=== PATIENT | male | born 1965 | race Caucasian/White ===

== ENCOUNTER → 2019-01-08 | Day surgery (SDC) | payer MEDICAID, MEDICARE ==
--- NOTE | 2019-01-04 14:00 | HP ---
HISTORY AND PHYSICAL This gentleman came to the office referred by Dr. Borjas for placement of a Port-A- Cath. The patient has history of multiple sclerosis under care of Dr. Borjas. According to the patient and the family, they have very difficult IV access, so the patient need a Port-A-Cath for frequent IV infusion and patient will be scheduled for placement of the Port-A-Cath. MEDICAL HISTORY: No history of diabetes, hypertension. Patient has a history of vasospastic disease and patient is wheelchair bound. PHYSICAL EXAMINATION: NECK: Supple, trachea central. CHEST: Clear to auscultation. ABDOMEN: Soft, nontender. Femorals are palpable. The patient is wheelchair bound and he has spasticity of the upper and lower extremities. PLAN: Placement of a Port-A-Cath. The risks and complication discussed, bleeding, infection, thrombosis. MMODL / IJN: [id number] /
[~2019-01-08] MED LIST: LACTATED RINGERS 1,000 ML IV SCH; LIDOCAINE 1% (PF) 10 MG/ML (30 ML SDV) SQ ONE; MIDAZOLAM 2 MG/2 ML VIAL ONE; PROPOFOL 10 MG/ML 20 ML VIAL IV ONE; SODIUM CHLORIDE 0.9% 500 ML 500 ML IV ONE; SODIUM CHLORIDE 0.9% 500 ML 500 ML IV SCH; ceFAZolin IN SWFI 2 GM/20 ML SYRINGE IVP STA; fentaNYL (PF) 50 MCG/ML 2 ML AMP ONE
[2019-01-08 09:57] VITALS: RESP 18; TEMP 98
[2019-01-08 10:04] LABS: Basophils # (A) 0.1 k/uL (0-0.2); Basophils % (A) 1 %; Eosinophils # (A) 0.3 k/uL (0-0.7); Eosinophils % (A) 5 %; HCT 46.3 % (39.0-53.0); Lymphocytes # (A) 1.9 k/uL (1.0-4.8); Lymphocytes % (A) 31 %; MCH 30.5 pg (25.0-35.0); MCHC 32.4 g/dL (31.0-37.0); MCV 94.1 fL (80.0-100.0); Mean Platelet Volume 7.1; Monocytes # (A) 0.4 k/uL (0-1.0); Monocytes % (A) 7 %; Neutrophils # (A) 3.2 k/uL (1.3-7.7); Neutrophils % (A) 53 %; Platelet Count 193 k/uL (150-450); RBC 4.92 m/uL (4.30-5.90); RDW 12.5 % (11.5-15.5); WBC 6.1 k/uL (3.8-10.6)
[2019-01-08 10:15] LABS: Anion Gap 6 mmol/L; Blood Urea Nitrogen 11 mg/dL (9-20); Calcium 9.2 mg/dL (8.4-10.2); Carbon Dioxide 32 mmol/L (22-30); Chloride 104 mmol/L (98-107); Glucose 90 mg/dL (74-99); Sodium 142 mmol/L (137-145)
[2019-01-08 10:23] LABS: Potassium 5.2 mmol/L (3.5-5.1)
[2019-01-08 12:32] VITALS: BP 145/71; PULSE 71
--- NOTE | 2019-01-08 12:32 | IR ---
EXAMINATION TYPE: IR cvc insert central tunneled DATE OF EXAM: 01/08/2019 COMPARISON: NONE HISTORY: Fluoroscopy time. Fluoroscopy was provided to the referring clinician.
--- NOTE | 2019-01-08 13:00 | XR ---
EXAMINATION TYPE: XR chest 1V portable DATE OF EXAM: 01/08/2019 COMPARISON: NONE HISTORY: MediPort placement TECHNIQUE: Single frontal view of the chest is obtained. FINDINGS: There is a right-sided Mediport terminating in the distal superior vena cava. There is no focal air space opacity, pleural effusion, or pneumothorax seen. The cardiac silhouette size is with in normal limits. The osseous structures are intact. Osseous demineralization is noted. IMPRESSION: Right-sided Mediport terminating in the distal superior vena cava. No acute cardiopulmona ry process.
--- NOTE | 2019-01-08 13:06 | PCN ---
PROCEDURE NOTE PREOPERATIVE DIAGNOSIS: Multiple sclerosis with difficult IV access. PROCEDURE: Ultrasound-guided Port-A-Cath placed right internal jugular approach. This patient was brought to the candlemaking laborer under sedation. The right side of the neck and chest was prepped and draped in a sterile manner. Ultrasound-guided micropuncture introduced into the right jugular vein. Then micropuncture guidewire was passed and checked with the C-Arm. It was in good position. After that, we created a pocket, transfer incision was made on the anterior chest wall, using 1% lidocaine, deepened through skin, fat, and fascia. A pocket was created. Then Port-A-Cath was tunneled and was brought into the neck incision and Port-A-Cath was secured with using 2-0 Prolene to secure the Port-A-Cath, flushed with heparin saline. After that, we passed a regular guidewire and sheath was advanced on top of the guidewire. Through the sheath we introduced Port-A-Cath catheter, tip of the catheter in superior vena, atrial junction. Flushed with heparin saline and hemostasis was well controlled. Incision was closed with 4-0 Vicryl and skin closed. Subcuticular dressing applied. PLAN: Patient going home today. We will do the chest x-ray and patient will follow in my office in 1 week. MMODL / IJN: [id number] /
== END ==
LOC: CATHCVL 09:23
PROVIDERS: ATTEND Surgery Vascular Surgery
DX: G35 Multiple sclerosis (principal); I73.9 Peripheral vascular disease, unspecified; F48.2 Pseudobulbar affect; Z99.3 Dependence on wheelchair; Z79.899 Other long term (current) drug therapy
CPT/HCPCS: 36561; 76937; 77001; 80048; 85025; 71045; C1788; C1769 ×2; J2250; J2001; J3010; J2704; J0690; 36571

== ENCOUNTER 2019-05-16 15:36 | Inpatient (IN) | payer MEDICAID, MEDICARE ==
[2019-05-16] MEDS ORDERED: IPRATROPIUM-ALBUTEROL 3 ML NEB INHALATION STA (16:12)
--- NOTE | 2019-05-16 16:15 | ED ---
General Adult HPI - General Chief complaint: Shortness of Breath Stated complaint: Dyspnea Time Seen by Provider: 05/16/19 16:04 Source: patient, family, EMS, RN notes reviewed Mode of arrival: EMS Limitations: language barrier, physical limitation - History of Present Illness Initial comments: Patient is a pleasant 54-year-old male with advanced EMS. He presents with for difficulty breathing. Patient maybe had minimal symptoms of has day or 2 however symptoms significantly worsen today. Patient had coughing with thick white sputum even with suctioning. No fevers. Patient does feel short of breath. Oxygen level was low at home and patient had to restart oxygen. Patient has been off oxygen for a couple of weeks prior to this. Patient was in the hospital 2 or 3 months ago with pneumonia. Prior to that no history of any breathing problems. Patient has had some intermittent tachycardia and takes Cardizem for this. Only his heart rate is only around 100 however. Patient has limited verbal capability however is able to easily answer yes and no. provides majority of history. - Related Data Home Medications Medication Instructions Recorded Confirmed Dextromethorphan HBr/Quinidine 1 cap PO Q12H 01/04/19 05/16/19 [Nuedexta 20-10 mg Capsule] Modafinil [Provigil] 200 mg PO BID 01/04/19 05/16/19 Calcium Carbonate [Calcium] 600 mg PO DAILY 01/20/19 05/16/19 Cholecalciferol [Vitamin D3 (25 1,000 unit PO DAILY 01/20/19 05/16/19 Mcg = 1000 Iu)] Amoxic-Pot Clav 875-125Mg 1 tab PO BID 05/16/19 05/16/19 [Augmentin 875-125] Ascorbic Acid [Vitamin C] 5,000 mcg PO DAILY 05/16/19 05/16/19 Baclofen Pump (5.3mcg Per Hour) 1 pump IV Q24H 05/16/19 05/16/19 Loratadine [Claritin] 10 mg PO DAILY 05/16/19 05/16/19 diphenhydrAMINE HCL [Benadryl] 25 mg PO BID 05/16/19 05/16/19 guaiFENesin [Mucinex] 600 mg PO BID PRN 05/16/19 05/16/19 Previous Rx's Medication Instructions Recorded Diltiazem Oral [Cardizem*] 30 mg PO TID #30 tab 02/11/19 Pantoprazole Sodium [Protonix] 40 mg PO AC-BRKFST #30 tablet. 02/11/19 Allergies Allergy/AdvReac Type Severity Reaction Status Date / Time No Known Allergies Allergy Verified 05/16/19 15:55 Review of Systems ROS Statement: Those systems with pertinent positive or pertinent negative responses have been documented in the HPI. ROS Other: All systems not noted in ROS Statement are negative. Constitutional: Denies: fever Eyes: Denies: eye pain ENT: Denies: ear pain Respiratory: Reports: cough, dyspnea Cardiovascular: Denies: chest pain Endocrine: Reports: fatigue Gastrointestinal: Denies: abdominal pain Genitourinary: Denies: urgency Musculoskeletal: Denies: back pain Skin: Denies: rash Neurological: Denies: headache Past Medical History Additional Past Medical History / Comment(s): MS-dx 2000,quadriplegic-uses w/chair-total transfer asst,has caregiver,uses condom catheter History of Any Multi-Drug Resistant Organisms: None Reported Past Surgical History: No Surgical Hx Reported Additional Past Surgical History / Comment(s): Mediport placed on 12/30/2018; Medication pump placed on 01/18/2019 Past Anesthesia/Blood Transfusion Reactions: No Reported Reaction Additional Past Anesthesia/Blood Transfusion Reaction / Comment(s): no hx blood transfusion,never has had anesthesia Past Psychological History: No Psychological Hx Reported Smoking Status: Never smoker - Past Family History Father Family Medical History: Cancer Additional Family Medical History / Comment(s): leukemia General Exam Limitations: language barrier, physical limitation General appearance: alert, in no apparent distress, cachectic Head exam: Present: atraumatic Eye exam: Present: normal appearance, PERRL ENT exam: Present: normal oropharynx Neck exam: Present: normal inspection Respiratory exam: Present: rales, rhonchi Cardiovascular Exam: Present: tachycardia GI/Abdominal exam: Present: soft. Absent: tenderness Extremities exam: Present: normal inspection Neurological exam: Present: alert, other (Patient has diffuse muscle weakness. Patient is unable to sit up on his own) Psychiatric exam: Present: normal affect, normal mood Skin exam: Present: normal color. Absent: rash Course Vital Signs 05/16/19 05/16/19 05/16/19 15:38 16:51 17:12 Temperature 99.0 F Pulse Rate 133 H 124 H 118 H Respiratory 20 Rate Blood Pressure 144/95 O2 Sat by Pulse 94 L Oximetry 05/16/19 18:43 Temperature Pulse Rate 122 H Respiratory 20 Rate Blood Pressure 118/83 O2 Sat by Pulse 95 Oximetry EKG Findings - EKG Comments: EKG Findings:: Sinus tachycardia 128. NM 140. QRS 100. QT 310. QTc 452. Left axis. Incomplete right bundle-branch block. No acute ST change. Medical Decision Making - Medical Decision Making Patient reevaluated and resting comfortably in bed. Heart rate has improved to 120 on the monitor. Heart rate remains sinus rhythm, tachycardia. Patient was on monitor secondary to tachycardia and dyspnea. This was to monitor for arrhythmias. Patient and family updated on results and plan. Case was discussed in detail with Dr. Garcia, who will admit covering for visiting physician. He does request a dose of Robinul Patient has previously seen Dr. Delaney and he will be placed on consult. - Lab Data Result diagrams: 05/16/19 16:06 05/16/19 16:06 Lab Results 05/16/19 05/16/19 05/16/19 Range/Units 16:06 16:06 16:06 WBC 18.8 H (3.8-10.6) k/uL RBC 4.86 (4.30-5.90) m/uL Hgb 13.9 (13.0-17.5) gm/dL Hct 42.3 (39.0-53.0) % MCV 87.0 (80.0-100.0) fL MCH 28.6 (25.0-35.0) pg MCHC 32.9 (31.0-37.0) g/dL RDW 14.4 (11.5-15.5) % Plt Count 355 (150-450) k/uL Neutrophils % 88 % Lymphocytes % 5 % Monocytes % 5 % Eosinophils % 1 % Basophils % 1 % Neutrophils # 16.6 H (1.3-7.7) k/uL Lymphocytes # 0.9 L (1.0-4.8) k/uL Monocytes # 0.9 (0-1.0) k/uL Eosinophils # 0.2 (0-0.7) k/uL Basophils # 0.1 (0-0.2) k/uL PT (9.0-12.0) sec INR (<1.2) APTT (22.0-30.0) sec Sodium 137 (137-145) mmol/L Potassium 4.2 (3.5-5.1) mmol/L Chloride 100 (98-107) mmol/L Carbon Dioxide 29 (22-30) mmol/L Anion Gap 8 mmol/L BUN 14 (9-20) mg/dL Creatinine 0.28 L (0.66-1.25) mg/dL Est GFR (CKD-EPI)AfAm >90 (>60 ml/min/1.73 sqM) Est GFR (CKD-EPI)NonAf >90 (>60 ml/min/1.73 sqM) Glucose 160 H (74-99) mg/dL Plasma Lactic Acid Danny 1.9 (0.7-2.0) mmol/L Calcium 8.7 (8.4-10.2) mg/dL Total Bilirubin 0.4 (0.2-1.3) mg/dL AST 25 (17-59) U/L ALT 20 L (21-72) U/L Alkaline Phosphatase 72 (38-126) U/L Troponin I (0.000-0.034) ng/mL NT-Pro-B Natriuret Pep pg/mL Total Protein 7.2 (6.3-8.2) g/dL Albumin 3.9 (3.5-5.0) g/dL Urine Color Urine Appearance (Clear) Urine pH (5.0-8.0) Ur Specific Lewis (1.001-1.035) Urine Protein (Negative) Urine Glucose (UA) (Negative) Urine Ketones (Negative) Urine Blood (Negative) Urine Nitrite (Negative) Urine Bilirubin (Negative) Urine Urobilinogen (<2.0) mg/dL Ur Leukocyte Esterase (Negative) 05/16/19 05/16/19 05/16/19 Range/Units 16:06 16:06 16:06 WBC (3.8-10.6) k/uL RBC (4.30-5.90) m/uL Hgb (13.0-17.5) gm/dL Hct (39.0-53.0) % MCV (80.0-100.0) fL MCH (25.0-35.0) pg MCHC (31.0-37.0) g/dL RDW (11.5-15.5) % Plt Count (150-450) k/uL Neutrophils % % Lymphocytes % % Monocytes % % Eosinophils % % Basophils % % Neutrophils # (1.3-7.7) k/uL Lymphocytes # (1.0-4.8) k/uL Monocytes # (0-1.0) k/uL Eosinophils # (0-0.7) k/uL Basophils # (0-0.2) k/uL PT 10.0 (9.0-12.0) sec INR 0.9 (<1.2) APTT 27.4 (22.0-30.0) sec Sodium (137-145) mmol/L Potassium (3.5-5.1) mmol/L Chloride (98-107) mmol/L Carbon Dioxide (22-30) mmol/L Anion Gap mmol/L BUN (9-20) mg/dL Creatinine (0.66-1.25) mg/dL Est GFR (CKD-EPI)AfAm (>60 ml/min/1.73 sqM) Est GFR (CKD-EPI)NonAf (>60 ml/min/1.73 sqM) Glucose (74-99) mg/dL Plasma Lactic Acid Danny (0.7-2.0) mmol/L Calcium (8.4-10.2) mg/dL Total Bilirubin (0.2-1.3) mg/dL AST (17-59) U/L ALT (21-72) U/L Alkaline Phosphatase (38-126) U/L Troponin I <0.012 (0.000-0.034) ng/mL NT-Pro-B Natriuret Pep 22 pg/mL Total Protein (6.3-8.2) g/dL Albumin (3.5-5.0) g/dL Urine Color Urine Appearance (Clear) Urine pH (5.0-8.0) Ur Specific Lewis (1.001-1.035) Urine Protein (Negative) Urine Glucose (UA) (Negative) Urine Ketones (Negative) Urine Blood (Negative) Urine Nitrite (Negative) Urine Bilirubin (Negative) Urine Urobilinogen (<2.0) mg/dL Ur Leukocyte Esterase (Negative) 05/16/19 Range/Units 17:40 WBC (3.8-10.6) k/uL RBC (4.30-5.90) m/uL Hgb (13.0-17.5) gm/dL Hct (39.0-53.0) % MCV (80.0-100.0) fL MCH (25.0-35.0) pg MCHC (31.0-37.0) g/dL RDW (11.5-15.5) % Plt Count (150-450) k/uL Neutrophils % % Lymphocytes % % Monocytes % % Eosinophils % % Basophils % % Neutrophils # (1.3-7.7) k/uL Lymphocytes # (1.0-4.8) k/uL Monocytes # (0-1.0) k/uL Eosinophils # (0-0.7) k/uL Basophils # (0-0.2) k/uL PT (9.0-12.0) sec INR (<1.2) APTT (22.0-30.0) sec Sodium (137-145) mmol/L Potassium (3.5-5.1) mmol/L Chloride (98-107) mmol/L Carbon Dioxide (22-30) mmol/L Anion Gap mmol/L BUN (9-20) mg/dL Creatinine (0.66-1.25) mg/dL Est GFR (CKD-EPI)AfAm (>60 ml/min/1.73 sqM) Est GFR (CKD-EPI)NonAf (>60 ml/min/1.73 sqM) Glucose (74-99) mg/dL Plasma Lactic Acid Danny (0.7-2.0) mmol/L Calcium (8.4-10.2) mg/dL Total Bilirubin (0.2-1.3) mg/dL AST (17-59) U/L ALT (21-72) U/L Alkaline Phosphatase (38-126) U/L Troponin I (0.000-0.034) ng/mL NT-Pro-B Natriuret Pep pg/mL Total Protein (6.3-8.2) g/dL Albumin (3.5-5.0) g/dL Urine Color Yellow Urine Appearance Clear (Clear) Urine pH 7.0 (5.0-8.0) Ur Specific Lewis 1.014 (1.001-1.035) Urine Protein Negative (Negative) Urine Glucose (UA) Negative (Negative) Urine Ketones Negative (Negative) Urine Blood Negative (Negative) Urine Nitrite Negative (Negative) Urine Bilirubin Negative (Negative) Urine Urobilinogen <2.0 (<2.0) mg/dL Ur Leukocyte Esterase Negative (Negative) - Radiology Data Radiology results: image reviewed (Chest x-ray shows no acute process) Disposition Clinical Impression: History of multiple sclerosis, Acute tracheitis Disposition: ADMITTED IP TO THIS HOSP Is patient prescribed a controlled substance at d/c from ED?: No Referrals: Nasim Irvin MD [Primary Care Provider] - 1-2 days Decision Time: 19:01
[2019-05-16 17:04] LABS: ALT 20 U/L (21-72); AST 25 U/L (17-59); African American GFR (CKD) >90 (>60 ml/min/1.73 sqM); Albumin 3.9 g/dL (3.5-5.0); Alkaline Phosphatase 72 U/L (38-126); Anion Gap 8 mmol/L; Blood Urea Nitrogen 14 mg/dL (9-20); Calcium 8.7 mg/dL (8.4-10.2); Carbon Dioxide 29 mmol/L (22-30); Chloride 100 mmol/L (98-107); Glucose 160 mg/dL (74-99); Potassium 4.2 mmol/L (3.5-5.1); Sodium 137 mmol/L (137-145); Total Bilirubin 0.4 mg/dL (0.2-1.3); Total Protein 7.2 g/dL (6.3-8.2)
[2019-05-16 17:07] LABS: INR 0.9 (<1.2); Partial Thromboplastin Time 27.4 sec (22.0-30.0)
[2019-05-16 17:20] LABS: Basophils # (A) 0.1 k/uL (0-0.2); Basophils % (A) 1 %; Eosinophils # (A) 0.2 k/uL (0-0.7); Eosinophils % (A) 1 %; HCT 42.3 % (39.0-53.0); HGB 13.9 gm/dL (13.0-17.5); Lymphocytes # (A) 0.9 k/uL (1.0-4.8); Lymphocytes % (A) 5 %; MCH 28.6 pg (25.0-35.0); MCHC 32.9 g/dL (31.0-37.0); Mean Platelet Volume 7.8; Monocytes # (A) 0.9 k/uL (0-1.0); Monocytes % (A) 5 %; Neutrophils # (A) 16.6 k/uL (1.3-7.7); Neutrophils % (A) 88 %; Platelet Count 355 k/uL (150-450); RBC 4.86 m/uL (4.30-5.90); RDW 14.4 % (11.5-15.5); WBC 18.8 k/uL (3.8-10.6)
--- NOTE | 2019-05-16 17:27 | XR ---
EXAMINATION TYPE: XR chest 1V portable DATE OF EXAM: 05/16/2019 COMPARISON: 05/02/2019 HISTORY: Cough TECHNIQUE: Single frontal view of the chest is obtained. FINDINGS: There is tracheostomy tube. Lungs are clear. There is no heart failure. There is right shima tral venous catheter with the tip in the superior vena cava. IMPRESSION: No active cardiopulmonary disease. Atheromatous aorta. No change.
[2019-05-16 17:58] LABS: Appearance,Urine Clear (Clear); Bilirubin,Urine Negative (Negative); Blood,Urine Negative (Negative); Color,Urine Yellow; Glucose,Urine (UA) Negative (Negative); Ketones,Urine Negative (Negative); Leukocyte Esterase,Urine Negative (Negative); Nitrite,Urine Negative (Negative); Protein,Urine Negative (Negative); Specific Gravity,Urine 1.014 (1.001-1.035); Urobilinogen,Urine <2.0 mg/dL (<2.0)
[2019-05-16] MEDS ORDERED: GLYCOPYRROLATE 0.2 MG/ML 2 ML VIAL IVP ONE (18:59)
[2019-05-16] MEDS ORDERED: PNEUMONIA PROTOCOL UTILIZED 1 EACH MISC PO PRN (19:08)
[2019-05-16] MEDS ORDERED: IPRATROPIUM-ALBUTEROL 3 ML NEB INHALATION PRN (19:08)
[2019-05-16] MEDS ORDERED: AZITHROMYCIN 500 MG in SODIUM CHLORIDE 0.9% 250 ML IVPB STA (19:08)
[2019-05-16] MEDS ORDERED: SODIUM CHLORIDE 0.9% 1,000 ML IV SCH (19:15)
[2019-05-16] MEDS ORDERED: IBUPROFEN IV 600 MG in SODIUM CHLORIDE 0.9% 250 ML IV ONE (19:53)
[2019-05-16] MEDS ORDERED: ACETAMINOPHEN TAB 500 MG TAB PO STA (19:53)
[2019-05-16] MEDS: IPRATROPIUM-ALBUTEROL 3 ML NEB INHALATION SCH (21:21)
[2019-05-17 04:34] VITALS: RESP 16
[2019-05-17] MEDS: IPRATROPIUM-ALBUTEROL 3 ML NEB INHALATION SCH ×3 (07:04→15:54)
[2019-05-17] MEDS ORDERED: guaiFENesin 600 MG TABLET.ER PO PRN (09:54)
[2019-05-17] MEDS ORDERED: BACLOFEN IV SCH (10:00)
[2019-05-17 10:20] VITALS: BMI 19.5
[2019-05-17] MEDS ORDERED: MODAFINIL 200 MG TAB PO SCH (12:00)
--- NOTE | 2019-05-17 13:13 | XR ---
EXAMINATION TYPE: XR chest 2V DATE OF EXAM: 05/17/2019 COMPARISON: 05/16/2019 HISTORY: 54-year-old male shortness of breath, pneumonia TECHNIQUE: AP and lateral views FINDINGS: Tracheostomy cannula is present. Right anterior chest wall injection port with catheter tip at the mi d SVC level. Heart normal size. Mild elongation thoracic aorta. There is some patchy posterior basilar opacity on the lateral view. No other consolidation or pleural effusion. IMPRESSION: Some patchy posterior basilar atelectasis or developing infiltrate.
[2019-05-17] MEDS ORDERED: DILTIAZEM ORAL 30 MG TAB PO SCH (16:00)
[2019-05-17 16:49] VITALS: BP 107/66; PULSE 89; TEMP 97
[2019-05-17] MEDS ORDERED: AZITHROMYCIN 500 MG TAB PO SCH (18:00)
--- NOTE | 2019-05-17 19:10 | CONS ---
CONSULTATION PULMONARY/CRITICAL CARE CONSULTATION: DATE OF SERVICE: 05/17/2019 REASON FOR CONSULTATION: Cough and shortness of breath. This is a patient well known to our service. He is a 54-year-old male with a history of advanced multiple sclerosis. He comes in with complaints of difficulty breathing. The patient states that this happened a couple days prior to admission. It got worse on the day of admission, and for that reason he was evaluated in the emergency room. In addition to shortness of breath, he apparently was having cough with some thick white phlegm production. It came on rather suddenly. There is no fever or chills. Not coughing up any blood. Appetite is good. There is no unusual weight loss. Again, no other complaints or abnormalities. Anyway, he is resting comfortably in bed. He is status post tracheostomy. I am not sure exactly what happened to him. I was concerned about the fact that he may have aspirated. He does have a cuff tube, but the cuff is deflated. Another possibility is that he had some postnasal drip-like symptoms. His chest x-ray is normal. Apparently he was told in the emergency room he has tracheitis. Again, I am not sure exactly what caused this shortness of breath and chest pain. Nonetheless, he is completely back to baseline and would like to be discharged home. Apparently, according to Dr. Garcia, he will be discharged after dinner. His current medications include Nuedexta, Provigil, calcium, vitamin D3, Augmentin, ascorbic acid, baclofen pump, loratadine, diphenhydramine hydrochloride and Mucinex. Also he is on Cardizem and Protonix. ALLERGIES: DENIED. MEDICAL HISTORY: His medical history includes multiple sclerosis diagnosed in 2000. He has significant quadriparesis/plegia. He uses a wheelchair for assistance and transfer. He also apparently uses a condom catheter as to when he urinates. His other medical history is unremarkable. SURGICAL HISTORY: Surgical history includes tracheostomy and Mediport placement. He has also had a pain pump inserted. SOCIAL HISTORY: Negative for tobacco use. No alcohol use. No illicit drug use. FAMILY HISTORY: Positive for leukemia in his father. No significant medical history in his mother. REVIEW OF SYSTEMS: CONSTITUTIONAL: Negative. NEUROLOGIC: Negative except for MS. HEENT: Negative. CARDIOVASCULAR: Negative. PULMONARY: Shortness of breath, cough and phlegm production. GI: Negative. : Negative. RHEUMATOLOGIC: Negative. IMMUNOLOGIC: Negative. ENDOCRINOLOGIC: Negative. DERMATOLOGIC: Negative. PHYSICAL EXAMINATION: VITAL SIGNS: Current vital signs are reviewed. Temperature 96.5, heart rate 93, respiratory rate 16, blood pressure 112/76, mean 88, two-liter saturation 92%. GENERAL: He appears in no acute distress. HEENT: HEENT examination is grossly unremarkable. Mucous membranes are moist. No oral lesions. NECK: Supple. Full range of motion. No adenopathy or thyromegaly. Neck veins are flat. There is a midline tracheostomy tube noted. CARDIOVASCULAR: Cardiovascular examination reveals regular rhythm and rate. Heart rate 84. S1, S2 normal. No S3, S4 or murmur. LUNGS: Lungs reveal mostly clear breath sounds. No wheezes, rhonchi or significant crackles. Breath sounds are equal bilaterally. ABDOMEN: Soft. Bowel sounds are heard. EXTREMITIES: Extremities are intact. No cyanosis, clubbing or edema. SKIN: Without rash. NEUROLOGIC: Neurologic examination reveals diffuse muscle weakness throughout his upper and lower extremities. The rest of the examination is unremarkable. LAB DATA/IMAGING: Reviewed. White count 18.8, hemoglobin 13.9, hematocrit 42.3, platelet count 355,000, PT, INR and PTT all normal. Sodium, potassium, chloride, CO2 all normal. Anion gap normal. BUN and creatinine were 14 and 0.28. Glucose 160. The rest of the labs look normal. Chest x-ray shows no active cardiopulmonary disease. Medications are reviewed. ASSESSMENT: 1. Tracheobronchitis, of unclear etiology. Appears not to be infectious. Could relate to aspiration and/or sinus drainage syndrome. 2. History of multiple sclerosis. 3. No evidence of pneumonia. 4. Gastroesophageal reflux disease. PLAN: The patient seems to be doing relatively well. He would like to be discharged home. I told him it was up to his primary service. He will follow up with his primary physician. Additional recommendations and suggestions are forthcoming. He will continue to see my partner in the outpatient setting. No additional recommendations are made. Prognosis is guarded. MMODL / IJN: [id number] /
[2019-05-17] MEDS ORDERED: diphenhydrAMINE 25 MG CAP PO SCH (21:00)
[2019-05-17] MEDS ORDERED: DEXTROMETHORPHAN HBR PO SCH (21:00)
[2019-05-17] MEDS ORDERED: QUINIDINE PO SCH (21:00)
--- NOTE | 2019-05-17 21:21 | P.HPIM ---
History of Present Illness H&P Date: 05/17/19 Chief Complaint: Increased white secretions, but History of presenting complaint: This is a pleasant 54-year-old patient who follows with visiting physicians Dr. Nasim Dhillon. Patient was diagnosed with multiple sclerosis back in 2000. It has progressively gotten worse. Patient's primary much bedridden. Does get significant muscle spasms. Operations performed baclofen pain pump, by Dr. Borjas. Patient recently did get a PEG tube and a tracheostomy. Patient is of a condom catheter. Does get bowel movements. Patient does not have much use of his hands currently. Patient presents with increasing shortness of breath increase clear secretions. No fevers or chills. Patient gives most of the history is also the care provider. Patient is having increased mucousy secretions, also desaturated to the same. And patient admitted for the same. An pulmonary consultation was done. Review of systems: GEN.: Tired EYES: None HEENT: Tracheostomy NECK: None RESPIRATORY: As above CARDIOVASCULAR: None GASTROINTESTINAL: None GENITOURINARY: Has a condom catheter MUSCULOSKELETAL: Gets muscle spasm LYMPHATICS: None HEMATOLOGICAL: None PSYCHIATRY: None NEUROLOGICAL: [Weakness in all the 4 limbs Social history: No smoking. No alcohol. . Bed bound and uses a wheelchair. Family history: Leukemia Physical examination: VITAL SIGNS: 99, 133, 20, 140/95, 94% on 2 L on presentation GENERAL: thinbuilt, sitting up, comfortable. EYES: Pupils equal. Conjunctiva normal. HEENT: External appearance of nose and ears normal, oral cavity grossly normal. NECK: JVD unable to assess, tracheostomy in place. HEART: First and second heart sounds are normal; no edema. LUNGS: Respiratory rate normal; minimal wheezing if any. ABDOMEN: Soft, nontender, liver spleen not palpable, no masses palpable. PSYCH: Alert and oriented x3; mood and affect anxiousl. NEUROLOGICAL: Cranial nerves grossly intact; no facial asymmetry, power lower extremities and upper extremity 1/5. LYMPHATICS: No lymph nodes palpable in the axilla and neck Investigations, reviewed in the clinical context: White count 18.8, hemoglobin 13.9, potassium 4.2, BUN 14, creatinine 0.28 Chest x-ray film personally reviewed by me she's shows no obvious infiltrate Assessment: -Some shortness of breath from acute tracheobronchitis with clear secretions no obvious fever and chills. -Advancing worsening multiple sclerosis -Chronic muscle spasms from MS -Chronic medical WD -Chronic neurogenic bladder and requiring Regalado catheter Plan: Dr. Lomeli from pulmonary was consulted. Home medications resumed. Patient's blood bronchodilators. Also patient was put on Robinul. Also given a dose of IV ceftriaxone. By this afternoon doing much better. Care was discussed at length with the patient and the . Past Medical History Additional Past Medical History / Comment(s): MS-dx 2000,quadriplegic-uses w/chair-total transfer asst,has caregiver,uses condom catheter History of Any Multi-Drug Resistant Organisms: None Reported Past Surgical History: No Surgical Hx Reported Additional Past Surgical History / Comment(s): Mediport placed on 12/30/2018; Medication pump placed on 01/18/2019 Past Anesthesia/Blood Transfusion Reactions: No Reported Reaction Additional Past Anesthesia/Blood Transfusion Reaction / Comment(s): no hx blood transfusion,never has had anesthesia Past Psychological History: No Psychological Hx Reported Smoking Status: Never smoker Past Alcohol Use History: None Reported Past Drug Use History: None Reported - Past Family History Father Family Medical History: Cancer Additional Family Medical History / Comment(s): leukemia Medications and Allergies Home Medications Medication Instructions Recorded Confirmed Type Dextromethorphan HBr/Quinidine 1 cap PO Q12H 01/04/19 05/16/19 History [Nuedexta 20-10 mg Capsule] Modafinil [Provigil] 200 mg PO BID 01/04/19 05/16/19 History Calcium Carbonate [Calcium] 600 mg PO DAILY 01/20/19 05/16/19 History Cholecalciferol [Vitamin D3 (25 1,000 unit PO DAILY 01/20/19 05/16/19 History Mcg = 1000 Iu)] Diltiazem Oral [Cardizem*] 30 mg PO TID #30 tab 02/11/19 05/16/19 Rx Pantoprazole Sodium [Protonix] 40 mg PO AC-BRKFST #30 tablet. 02/11/19 05/16/19 Rx Amoxic-Pot Clav 875-125Mg 1 tab PO BID 05/16/19 05/16/19 History [Augmentin 875-125] Ascorbic Acid [Vitamin C] 5,000 mcg PO DAILY 05/16/19 05/16/19 History Baclofen Pump (5.3mcg Per Hour) 1 pump IV Q24H 05/16/19 05/16/19 History diphenhydrAMINE HCL [Benadryl] 25 mg PO BID 05/16/19 05/16/19 History guaiFENesin [Mucinex] 600 mg PO BID PRN 05/16/19 05/16/19 History Loratadine [Claritin] 5 mg PO BID #0 05/17/19 05/16/19 Rx Allergies Allergy/AdvReac Type Severity Reaction Status Date / Time No Known Allergies Allergy Verified 05/16/19 15:55 Physical Exam Vitals: Vital Signs Temp Pulse Pulse Resp BP BP Pulse Ox 05/17/19 07:22 84 05/17/19 07:12 80 99 05/17/19 04:00 97.6 F 63 16 109/69 97 05/17/19 00:00 98 F 104 H 18 114/64 97 05/16/19 22:20 98.7 F 112 H 18 107/73 94 L 05/16/19 21:40 124 H 20 121/87 96 05/16/19 21:38 124 H 05/16/19 21:20 123 H 05/16/19 20:02 99.7 F H 05/16/19 19:26 120 H 20 115/83 95 05/16/19 18:43 122 H 20 118/83 95 05/16/19 17:12 118 H 05/16/19 16:51 124 H 05/16/19 15:38 99.0 F 133 H 20 144/95 94 L Intake and Output 05/16/19 05/17/19 05/17/19 22:59 06:59 14:59 Intake Total 250 Output Total 400 Balance -150 Intake: Intake, IV Titration 250 Amount Ibuprofen IV 600 mg In 250 Sodium Chloride 0.9% 250 ml @ 500 mls/hr IV ONCE ONE Rx#:[id number] Output: Urine 400 Other: Weight 61.235 kg 61.915 kg Results CBC & Chem 7: 05/16/19 16:06 05/16/19 16:06 Labs: Abnormal Lab Results - Last 24 Hours (Table) 05/16/19 05/16/19 Range/Units 16:06 16:06 WBC 18.8 H (3.8-10.6) k/uL Neutrophils # 16.6 H (1.3-7.7) k/uL Lymphocytes # 0.9 L (1.0-4.8) k/uL Creatinine 0.28 L (0.66-1.25) mg/dL Glucose 160 H (74-99) mg/dL ALT 20 L (21-72) U/L Microbiology - Last 24 Hours (Table) 05/16/19 17:40 Urine Culture - Preliminary Urine,Catheterized Thrombosis Risk Factor Assmnt - Choose All That Apply Each Factor Represents 1 point: Age 41-60 years Each Risk Factor Represents 2 Points: Patient confined to bed Thrombosis Risk Factor Assessment Total Risk Factor Score: 3 Thrombosis Risk Factor Assessment Level: Moderate Risk
--- NOTE | 2019-05-17 21:32 | P.DS ---
Providers Date of admission: 05/16/19 19:08 Expected date of discharge: 05/17/19 Attending physician: Davon Garcia Consults: 05/16/19 19:08 Consult Physician Routine Consulting Provider: Sugar Delaney Consult Reason/Comments: dyspnea Do you want consulting provider notified?: Yes Primary care physician: Nasim Irvin MD Hospital Course: Discharge diagnosis: -Acute tracheobronchitis. -Advancing worsening multiple sclerosis -Chronic muscle spasms from MS -Chronic medical WD -Chronic neurogenic bladder and requiring Regalado catheter Hospital course: This is a pleasant 54-year-old patient who follows with visiting physicians Dr. Nasim Dhillon. Patient was diagnosed with multiple sclerosis back in 2000. It has progressively gotten worse. Patient's primary much bedridden. Does get significant muscle spasms. Operations performed baclofen pain pump, by Dr. Borjas. Patient recently did get a PEG tube and a tracheostomy. Patient is of a condom catheter. Does get bowel movements. Patient does not have much use of his hands currently. Patient presents with increasing shortness of breath increase clear secretions. No fevers or chills. Patient gives most of the history is also the care provider. Patient is having increased mucousy secretions, also desaturated to the same. And patient admitted for the same. An pulmonary consultation was done. Patient was seen by Dr. Lomeli from pulmonary. Earlier patient had received bronchodilators. Robinul to cut back her secretions. By this afternoon is feeling really well. Dr. Lomeli can be discharged today, it was not felt to be infected and patient is doing much better clinically. Physical examination: VITAL SIGNS: 97.6, 8 9, 16, 107/66, 98% room air GENERAL: thinbuilt, sitting up, comfortable. EYES: Pupils equal. Conjunctiva normal. HEENT: External appearance of nose and ears normal, oral cavity grossly normal. NECK: JVD unable to assess, tracheostomy in place. HEART: First and second heart sounds are normal; no edema. LUNGS: Respiratory rate normal; minimal wheezing if any. ABDOMEN: Soft, nontender, liver spleen not palpable, no masses palpable. PSYCH: Alert and oriented x3; mood and affect anxiousl. NEUROLOGICAL: Cranial nerves grossly intact; no facial asymmetry, power lower extremities and upper extremity 1/5. LYMPHATICS: No lymph nodes palpable in the axilla and neck Consultation: Dr. Lomeli from pulmonary Disposition: Home Patient Condition at Discharge: Stable Plan - Discharge Summary Discharge Rx Participant: No New Discharge Prescriptions: Continue Dextromethorphan HBr/Quinidine [Nuedexta 20-10 mg Capsule] 1 cap PO Q12H Modafinil [Provigil] 200 mg PO BID Cholecalciferol [Vitamin D3 (25 Mcg = 1000 Iu)] 1,000 unit PO DAILY Calcium Carbonate [Calcium] 600 mg PO DAILY Diltiazem Oral [Cardizem*] 30 mg PO TID #30 tab Pantoprazole Sodium [Protonix] 40 mg PO AC-BRKFST #30 tablet. Ascorbic Acid [Vitamin C] 5,000 mcg PO DAILY guaiFENesin [Mucinex] 600 mg PO BID PRN PRN Reason: MUCUS diphenhydrAMINE HCL [Benadryl] 25 mg PO BID Amoxic-Pot Clav 875-125Mg [Augmentin 875-125] 1 tab PO BID Baclofen Pump (5.3mcg Per Hour) 1 pump IV Q24H Changed Loratadine [Claritin] 5 mg PO BID #0 Discharge Medication List Dextromethorphan HBr/Quinidine [Nuedexta 20-10 mg Capsule] 1 cap PO Q12H 01/04/19 [History] Modafinil [Provigil] 200 mg PO BID 01/04/19 [History] Calcium Carbonate [Calcium] 600 mg PO DAILY 01/20/19 [History] Cholecalciferol [Vitamin D3 (25 Mcg = 1000 Iu)] 1,000 unit PO DAILY 01/20/19 [History] Diltiazem Oral [Cardizem*] 30 mg PO TID #30 tab 02/11/19 [Rx] Pantoprazole Sodium [Protonix] 40 mg PO AC-BRKFST #30 tablet. 02/11/19 [Rx] Amoxic-Pot Clav 875-125Mg [Augmentin 875-125] 1 tab PO BID 05/16/19 [History] Ascorbic Acid [Vitamin C] 5,000 mcg PO DAILY 05/16/19 [History] Baclofen Pump (5.3mcg Per Hour) 1 pump IV Q24H 05/16/19 [History] diphenhydrAMINE HCL [Benadryl] 25 mg PO BID 05/16/19 [History] guaiFENesin [Mucinex] 600 mg PO BID PRN 05/16/19 [History] Loratadine [Claritin] 5 mg PO BID #0 05/17/19 [Rx] Follow up Appointment(s)/Referral(s): Sugar Delaney MD [STAFF PHYSICIAN] - 2 Weeks (Office is closed. Please call to schedule follow up appointment) Nasim Irvin MD [Primary Care Provider] - 05/21/19 (Monday -office will call you with time) [facility], [NON-STAFF] - [facility], [REFERRING] - Discharge Disposition: HOME WITH HOME HEALTH SERVICES
[2019-05-18] MEDS ORDERED: PANTOPRAZOLE 40 MG TABLET PO SCH (07:30)
[2019-05-18] MEDS ORDERED: LORATADINE 10 MG TAB PO SCH (09:00)
[2019-05-18] MEDS ORDERED: ASCORBIC ACID 500 MG TAB PO SCH (09:00)
[2019-05-18] MEDS ORDERED: CHOLECALCIFEROL 1,000 UNIT TAB PO SCH (09:00)
[2019-05-18] MEDS ORDERED: CALCIUM CARBONATE 500 MG CHEWABLE PO SCH (12:00)
== END 2019-05-17 19:03 | disposition home health service (06) | DRG 202 ==
LOC: EC 15:36 → 3SCARD 19:08
PROVIDERS: ADMIT Hospitalist; ATTEND Hospitalist
DX: J20.9 Acute bronchitis, unspecified (principal); G82.50 Quadriplegia, unspecified; G35 Multiple sclerosis; K21.9 Gastro-esophageal reflux disease without esophagitis; N31.9 Neuromuscular dysfunction of bladder, unspecified; Z74.01 Bed confinement status; Z80.6 Family history of leukemia; Z99.3 Dependence on wheelchair; Z79.899 Other long term (current) drug therapy; Z93.1 Gastrostomy status; Z93.0 Tracheostomy status
CPT/HCPCS: 36415; 71045; 71046; 80053; 81003; 83605; 83880; 84484; 85025; 85610; 85730; 87040; 87070; 87086; 87205; 93005; 94640; 94760; 96365; 96367; 96375; 99285

== ENCOUNTER → 2019-08-21 | Outpatient (CLI) | payer MEDICAID, MEDICARE ==
--- NOTE | 2019-08-21 12:36 | FL ---
EXAMINATION TYPE: FL barium swallow w video DATE OF EXAM: 08/21/2019 MODIFIED SWALLOW / DEGLUTITION STUDY CLINICAL HISTORY: Dysphagia and aspiration. History of severe multiple sclerosis requiring tracheosto my. TECHNIQUE: Deglutition study is performed utilizing thin liquid barium, honey and nectar thick liqui d barium, barium thick applesauce, and barium coated cracker. 0 spot images are saved to PACS. Total of 3 minutes 4 seconds of fluoroscopic time was utilized. COMPARISON: Prior barium swallow report January 23, 2019. FINDINGS: The oral and pharyngeal phases show satisfactory initiation and propagation with all modali ties tested. Satisfactory mastication is seen with single episode solid modality tested. There is no evidence of penetration or aspiration with any modality tested. Mild to severe pharyngeal residuals are appreciated more prominent with more viscous modalities. Some but incomplete clearing with repeat ed swallowing. Tracheostomy is noted. IMPRESSION: No penetration or aspiration on current study.. Please refer to speech therapist notes f or further details if necessary.
== END | disposition home or self-care (01) ==
LOC: RADFLMAIN 11:35
PROVIDERS: ATTEND Internal Medicine
DX: T81 Complications of procedures, not elsewhere classified (principal)
CPT/HCPCS: 74230

== ENCOUNTER 2019-12-04 13:52 | Emergency (ER) | payer MEDICAID, MEDICARE ==
[2019-12-04 14:15] VITALS: PULSE 75; TEMP 97.5
--- NOTE | 2019-12-04 15:11 | ED ---
Recheck HPI <Dwayne Bowers - Last Filed: 12/04/19 16:46> - General Source: patient, family, RN notes reviewed, old records reviewed Mode of arrival: ambulatory Limitations: physical limitation <Ankita Martinez - Last Filed: 12/04/19 20:05> - General Chief Complaint: Recheck/Abnormal Lab/Rx Stated Complaint: trach problem Time Seen by Provider: 12/04/19 14:30 - History of Present Illness Initial Comments: Patient is a 54-year-old male, he presents emergency department today for concern for she was with his trachea site. Patient is reportedly out of 4 size of his tracheostomy, and has been slowly decreasing in size. Differential goals to have the trachea removed. His back sizer is Dr. Galo. Patient reports that a few days ago Patient had a coughing spell and felt that he needed to be suctioned. Patient reports that his attempted to suction him but was unable to pass the suction tube through the cannula. He reports it seems to be some granulation tissue and pain around his trachea site since that time. Patient reports that he did attempt to go to his back sizer and primary care doctor's office today for further evaluation but were instructed to come to the emergency department. Patient denies any difficulty breathing or significant coughing at this time. (Ankita Martinez) - Related Data Home Medications Medication Instructions Recorded Confirmed Dextromethorphan HBr/Quinidine 1 cap PO Q12H 01/04/19 05/16/19 [Nuedexta 20-10 mg Capsule] Modafinil [Provigil] 200 mg PO BID 01/04/19 05/16/19 Calcium Carbonate [Calcium] 600 mg PO DAILY 01/20/19 05/16/19 Cholecalciferol [Vitamin D3 (25 1,000 unit PO DAILY 01/20/19 05/16/19 Mcg = 1000 Iu)] Amoxic-Pot Clav 875-125Mg 1 tab PO BID 05/16/19 05/16/19 [Augmentin 875-125] Ascorbic Acid [Vitamin C] 5,000 mcg PO DAILY 05/16/19 05/16/19 Baclofen Pump (5.3mcg Per Hour) 1 pump IV Q24H 05/16/19 05/16/19 diphenhydrAMINE HCL [Benadryl] 25 mg PO BID 05/16/19 05/16/19 guaiFENesin [Mucinex] 600 mg PO BID PRN 05/16/19 05/16/19 Previous Rx's Medication Instructions Recorded Diltiazem Oral [Cardizem*] 30 mg PO TID #30 tab 02/11/19 Pantoprazole Sodium [Protonix] 40 mg PO AC-BRKFST #30 tablet. 02/11/19 Loratadine [Claritin] 5 mg PO BID #0 05/17/19 Allergies Allergy/AdvReac Type Severity Reaction Status Date / Time No Known Allergies Allergy Verified 12/04/19 14:15 Review of Systems ROS Other: All systems not noted in ROS Statement are negative. <Dwayne Bowers - Last Filed: 12/04/19 16:46> ROS Other: All systems not noted in ROS Statement are negative. <Ankita Martinez - Last Filed: 12/04/19 20:05> ROS Statement: Those systems with pertinent positive or pertinent negative responses have been documented in the HPI. Past Medical History Past Medical History: Pneumonia Additional Past Medical History / Comment(s): MS-dx 2000,quadriplegic-uses w/chair-total transfer asst,has caregiver,uses condom catheter History of Any Multi-Drug Resistant Organisms: None Reported Past Surgical History: No Surgical Hx Reported Additional Past Surgical History / Comment(s): Mediport placed on 12/30/2018; Medication pump placed on 01/18/2019, peg, trachea, Past Anesthesia/Blood Transfusion Reactions: No Reported Reaction Additional Past Anesthesia/Blood Transfusion Reaction / Comment(s): no hx blood transfusion,never has had anesthesia Past Psychological History: No Psychological Hx Reported Smoking Status: Never smoker Past Alcohol Use History: None Reported Past Drug Use History: None Reported - Past Family History Father Family Medical History: Cancer Additional Family Medical History / Comment(s): leukemia <Ankita Martinez - Last Filed: 12/04/19 20:05> General Exam Limitations: physical limitation General appearance: alert, in no apparent distress Head exam: Present: atraumatic, normocephalic, normal inspection Eye exam: Present: normal appearance, PERRL, EOMI. Absent: scleral icterus, conjunctival injection, periorbital swelling ENT exam: Present: normal exam, mucous membranes moist Neck exam: Present: normal inspection. Absent: tenderness, meningismus, lymphadenopathy Respiratory exam: Present: normal lung sounds bilaterally. Absent: respiratory distress, wheezes, rales, rhonchi, stridor Cardiovascular Exam: Present: regular rate, normal rhythm, normal heart sounds. Absent: systolic murmur, diastolic murmur, rubs, gallop, clicks GI/Abdominal exam: Present: soft, normal bowel sounds. Absent: distended, tenderness, guarding, rebound, rigid Extremities exam: Present: normal inspection, full ROM, normal capillary refill. Absent: tenderness, pedal edema, joint swelling, calf tenderness Back exam: Present: normal inspection Neurological exam: Present: alert, oriented X3, CN II-XII intact <Ankita Martinez - Last Filed: 12/04/19 20:05> - General Exam Comments Initial Comments: This is a 54-year-old male. Alert and oriented 3. (Ankita Martinez) Course <Dwayne Bowers - Last Filed: 12/04/19 16:46> Vital Signs 12/04/19 14:10 Temperature 97.5 F L Pulse Rate 75 Respiratory 22 Rate Blood Pressure 125/76 O2 Sat by Pulse 99 Oximetry - Reevaluation(s) Reevaluation #1: 12/04/19 16:46 Patient was evaluated by myself, Dr. Bowers earlier. Patient resting comfortably in chair. No respirator distress at this time. Externally trach appears normal. Family states they're unable to suction the patient and unable to place the inner cannula. Case was discussed with Dr. Delaney who states that he does not manage trach problems and defers the case to whoever place the trach. Case was discussed with Dr. Ko who requests respiratory to evaluate. Respiratory is currently evaluating the trach. (Dwayne Bowers) Medical Decision Making <Ankita Martinez - Last Filed: 12/04/19 20:05> - Medical Decision Making Patient is a 54-year-old male, with concerns for trachea obstruction. He has had this trachea for over a year, and concerned that the past few days he is not able to fully cannulate perception. He did have one coughing episode where he couldnot clear this. On exam, no respiratory distress. Trachea site does not appear infected. Patient case discussed with Dr. Bowers. He initially discussed case with patient's back sizer Dr. Galo. He did not come to evaluate the Patient emergency department. Referred to Dr. Gibbs. Dr. Ortiz requested consult of respiratory therapist. Respiratory therapist did have a difficult time fully cannulating the trachea site due to granulation tissue and Patient had pa in. Is informed Dr. Menjivar who then recommended discussing with on-call ENT. On-call ENT Dr. Ervin came into the emergency department to evaluate the Patient after extended stay. At this time he did have a scope completed which showed no significant obstruction of only 20% of the area covered of the trachea had granulation tissue. They were informed that they did take trachea was to be completely removed this had to be determined that there back sizer for his respiratory status. Discussed the Patient in follow-up with back sizer Dr. Galo for further discussion of removing the trachea. Patient family and patient are agreeable to plan. (Ankita Martinez) Disposition <Dwayne Bowers - Last Filed: 12/04/19 16:46> Is patient prescribed a controlled substance at d/c from ED?: No Time of Disposition: 20:05 <Ankita Martinez - Last Filed: 12/04/19 20:05> Clinical Impression: Tracheostomy complication, unspecified Disposition: HOME SELF-CARE Condition: Good Instructions (If sedation given, give patient instructions): Tracheostomy Care (ED) Additional Instructions: Patient advised to a follow-up with Dr. Delaney in regards to needing the trachea from this point forward. Return to emergency department if any alarming signs or symptoms occur. Referrals: Nasim Irvin MD [Primary Care Provider] - 1-2 days
--- NOTE | 2019-12-04 20:09 | ED ---
Disposition Clinical Impression: Tracheostomy complication, unspecified Disposition: HOME SELF-CARE Condition: Good Instructions (If sedation given, give patient instructions): Tracheostomy Care (ED) Additional Instructions: Patient advised to a follow-up with Dr. Delaney in regards to needing the trachea from this point forward. Return to emergency department if any alarming signs or symptoms occur. Is patient prescribed a controlled substance at d/c from ED?: No Referrals: Nasim Irvin MD [Primary Care Provider] - 1-2 days Sugar Delaney MD [STAFF PHYSICIAN] - 1-2 days Time of Disposition: 20:09
[2019-12-04 20:42] VITALS: BP 121/81; RESP 16
--- NOTE | 2019-12-04 23:43 | PCN ---
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 PROCEDURE: Flexible tracheoscopy with flexible laryngoscope. ANESTHESIA: None. COMPLICATIONS: None. BLOOD LOSS: None. FINDINGS: See franchise business consultant note findings. PROCEDURE DESCRIPTION: The patient was in his hospital bed and flexible laryngoscopy was performed through the tracheostomy tube with findings as noted above. This was advanced into the upper trachea with the devon well visualized below. The scope was then withdrawn without complication and the trach tube cap was replaced. The patient tolerated this well with no complications. No bleeding. MMODL / IJN: [id number] /
--- NOTE | 2019-12-04 23:43 | CONS ---
CONSULTATION REASON FOR CONSULTATION: Check trach tube. HISTORY: This is a 54-year-old white male with a history of multiple sclerosis who last April had an episode of aspiration pneumonia and subsequently necessitated PEG tube as well as trach tube for suctioning, as he has a weak cough and respiratory function. This was originally a #8 cuffed trach tube which was in place for a couple of months and then downsized to a #6 cuffed trach tube which was in place for about 6 months, and in October of 2019 this was downsized to a #4 fenestrated uncuffed trach tube which has been capped for the most part ever since almost a month ago. He apparently had some coughing tonight and there was some concern that he was not able to be suctioned at home. He had no actual respiratory difficulty. His initial general surgeon as well as model photographers' were contacted and an ENT consultation was requested. The patient has had no respiratory distress in the ER and no bleeding or secretions. He has had the trach capped throughout his stay in the ER. PAST MEDICAL HISTORY: As above. PAST SURGICAL HISTORY: As above. ALLERGIES: NO KNOWN DRUG ALLERGIES. MEDICATIONS AT HOME: 1. Mucinex. 2. Benadryl. 3. Protonix. 4. Provigil. 5. Claritin. 6. Cardizem. 7. Nuedexta. 8. Vitamin D. 9. Calcium. 10.Baclofen. 11.Vitamin C. 12.Augmentin. FAMILY HISTORY: Noncontributory. SOCIAL HISTORY: He does not drink or smoke. REVIEW OF SYSTEMS: Noncontributory other than reviewed as above. PHYSICAL EXAMINATION: He is a slightly built adult white male in a hospital bed. Alert, awake and oriented. He does have voicing which is soft but still has voicing with the trach tube capped. He is in no respiratory distress with no tachypnea or stridor. The oral cavity exam is unremarkable. Neck is supple without adenopathy or tenderness. There is no swelling or erythema. A #4 uncuffed fenestrated trach tube is in place with cap intact. He is having no distress. The trach tube was uncapped and there is some minimal granulation tissue within the fenestration visible although not obstructing the tracheostomy tube particularly; 10% or less. Flexible tracheoscopy was performed with flexible laryngoscope and the trachea is completely normal with no granulation or drainage. The devon could be visualized from above. No erythema around the trach tube or drainage. ASSESSMENT: 1. Tracheostomy-dependent previously for secretions. 2. Multiple sclerosis. The trach cap was replaced and patient could voice well with this. PLAN: In order to clear the granulation tissue, the tracheostomy tube would need to be removed and replaced with an unfenestrated trach tube, as this is ingrowing through the fenestration and an inner cannula cannot be placed at this point. He can be suctioned, however, as a suction catheter has been passed through here already tonight. I did offer to change the trach tube to an unfenestrated #4 tube. However, the patient and his wonder if he needs the tracheostomy tube at all any more, as the ultimate goal was to have him decannulated at some point in the near future apparently. His pulmonary status is not particularly clear at this point, and it did not appear particularly appropriate to decannulate in the ER at this hour without this being known. Therefore, they are going to contact Dr. Delaney's office tomorrow to have him re-evaluated as far as pulmonary status. If it is felt that his pulmonary status is stable and he does not need the trach tube, then he could be decannulated. If it is felt that he should still have this for possible need for suctioning, then this should be replaced at least temporarily with an unfenestrated tube, which he actually could do quite well with anyway with this capped -- as essentially presently with the granulation he is not utilizing the fenestration, anyway. Dr. Delaney can then contact me if he has any further questions on this. MMODL / IJN: [id number] /
== END 2019-12-04 20:41 | disposition home or self-care (01) ==
LOC: EC 13:52
DX: J95.09 Other tracheostomy complication (principal); G35 Multiple sclerosis; G82.50 Quadriplegia, unspecified; Z79.899 Other long term (current) drug therapy; Z97.8 Presence of other specified devices
CPT/HCPCS: 99284

== ENCOUNTER 2021-03-23 09:56 | Day surgery (SDC) | payer OTHER, MEDICARE ==
[2021-03-18 14:34] VITALS: BMI 19.2
[2021-03-23] MEDS: LACTATED RINGERS 1,000 ML IV SCH ×2 (10:12→10:42)
[2021-03-23 10:29] VITALS: TEMP 97.6
[2021-03-23] MEDS ORDERED: LIDOCAINE 1% (10MG/ML) FOR IV START INTRADERMA ONE (10:43)
[2021-03-23] MEDS ORDERED: PROPOFOL 10 MG/ML 20 ML VIAL IV ONE (10:44)
[2021-03-23] MEDS ORDERED: LIDOCAINE 1% INJ 10MG/ML (20 ML MDV) ONE (10:44)
--- NOTE | 2021-03-23 10:48 | P.GSHP ---
History of Present Illness H&P Date: 03/23/21 Chief Complaint: Malnutrition, malfunctioning gastrostomy tube 55-year-old male known to our service. Patient underwent PEG tube placement 2 years ago. Here today for PEG tube replacement. Catheter has been leaking somewhat. Otherwise no new complaints. Past Medical History Past Medical History: GERD/Reflux, Musculoskeletal Disorder Additional Past Medical History / Comment(s): MS-dx 2000, quadriplegic-uses w/chair-total transfer asst, has caregiver, uses condom catheter History of Any Multi-Drug Resistant Organisms: None Reported Past Surgical History: No Surgical Hx Reported Additional Past Surgical History / Comment(s): Mediport placed on 12/30/2018; Medication pump placed on 01/18/2019, peg, trachea, TRACH REMOVED, EGD Past Anesthesia/Blood Transfusion Reactions: No Reported Reaction Additional Past Anesthesia/Blood Transfusion Reaction / Comment(s): no hx blood transfusion,never has had anesthesia Smoking Status: Never smoker - Past Family History Father Family Medical History: Cancer Additional Family Medical History / Comment(s): leukemia Medications and Allergies Home Medications Medication Instructions Recorded Confirmed Type Dextromethorphan HBr/Quinidine 1 cap PO Q12H 01/04/19 03/23/21 History [Nuedexta 20-10 mg Capsule] modafiniL [Provigil] 200 mg PO BID 01/04/19 03/23/21 History Cholecalciferol [Vitamin D3 (25 5,000 unit PO DAILY 01/20/19 03/23/21 History Mcg = 1000 Iu)] Pantoprazole Sodium [Protonix] 40 mg PO COURTNEY-XIOMARAKFSCarlos #30 tablet. 02/11/19 03/23/21 Rx Baclofen Pain Pump(168.4mcg/Day) 1 dose INTRATHECA CONTINUOUS 12/04/19 03/23/21 History Allergies Allergy/AdvReac Type Severity Reaction Status Date / Time No Known Allergies Allergy Verified 03/23/21 10:23 Surgical - Exam Vital Signs Temp Pulse Resp BP Pulse Ox 97.6 F 90 16 137/86 98 03/23/21 10:27 03/23/21 10:27 03/23/21 10:27 03/23/21 10:27 03/23/21 10:27 Physical exam: General: Well-developed, well-nourished HEENT: Normocephalic, sclerae nonicteric Abdomen: Nontender, nondistended, PEG tube in place left upper quadrant Extremities: No edema Neuro: Generalized weakness Assessment and Plan (1) Gastrostomy malfunction Narrative/Plan: Will proceed with EGD and PEG replacement Current Visit: Yes Status: Acute Code(s): K94.23 - GASTROSTOMY MALFUNCTION SNOMED Code(s): 604954201
--- NOTE | 2021-03-23 10:58 | P.PCN ---
Date of Procedure: 03/23/21 Procedure(s) Performed: Preoperative Dx: Multiple sclerosis, malnutrition, gastrostomy tube malfunction Postoperative Dx: Mild gastritis, small polyps, small hiatal hernia Procedure: EGD with PEG tube replacement Anesthesia: Sedation Endoscopist: Dr. Menjivar Specimens: None Endoscopic Procedure: The patient was on the endoscopy table in the left decubitus position. The Olympus gastroscope was inserted into the oropharynx and passed under direct visualization to the region of the third portion of the duodenum. From that point the scope was slowly withdrawn inspecting all surfaces carefully. There were no neoplastic inflammatory or polypoid lesions throughout the duodenum. The pylorus was widely patent. The stomach was carefully inspected. There was mild gastritis and multiple small polyps seen. The PEG tube was seen in the proximal antrum. The old PEG tube was able to removed fully intact without difficulty. A new 20-K[place] replacement non-balloon gastrostomy was advanced into the stomach under direct visualization without difficulty. The bolster was tightened. Patient was noted have a small sliding hiatal hernia upon removal of the scope. The remainder the esophagus was somewhat tortuous but otherwise normal. The patient was then taken to the recovery room in stable condition per anesthesia guidelines. Recommendations: Resume tube feeds. Consider replacement 1-2 years. Disposition: observation
[2021-03-23 11:17] VITALS: BP 141/91; PULSE 92; RESP 16
== END 2021-03-23 11:43 | disposition home or self-care (01) ==
LOC: ORWHC2ENDO 09:56
PROVIDERS: ATTEND Surgery
DX: K94.23 Gastrostomy malfunction (principal); K29.70 Gastritis, unspecified, without bleeding; K44.9 Diaphragmatic hernia without obstruction or gangrene; I25.10 Atherosclerotic heart disease of native coronary artery without angina pectoris; E46 Unspecified protein-calorie malnutrition; K21.9 Gastro-esophageal reflux disease without esophagitis; G35 Multiple sclerosis; G82.50 Quadriplegia, unspecified; Z79.899 Other long term (current) drug therapy; Z80.6 Family history of leukemia; Y84.8 Other medical procedures as the cause of abnormal reaction of the patient, or of later complication, without mention of misadventure at the time of the procedure
CPT/HCPCS: 43246; J2001; J2704